=== PATIENT | female | born 1970 | race Asian ===

== ENCOUNTER 2021-10-17 10:56 | Emergency (ER) | payer OTHER, BC ==
[~2021-10-17] VITALS: Ht 153.7 cm; Wt 56.7 kg
[2021-10-17 11:34] VITALS: BP_SYST 111
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
[2021-10-17] MEDS ORDERED: MORPHINE 4 MG INJ. 4 MG/ML VIAL IVP ONE ×2 (12:00→15:15)
[2021-10-17] MEDS ORDERED: ONDANSETRON HCL 4 MG/2 ML VIAL IVP ONE (12:00)
[2021-10-17] MEDS ORDERED: BACITRACIN 1 GM OINT TP ONE (12:00)
[2021-10-17] MEDS ORDERED: DIPHTH,PERTUSS(ACELL),TET VAC 0.5 ML VIAL (Tdap) I.M. ONE (12:00)
[2021-10-17] MEDS ORDERED: NACL 0.9% 1,000 ML IV ONE (12:00)
--- NOTE | 2021-10-17 12:02 | NUR ---
DR ROSS AT BEDSIDE FRO EXAM
[2021-10-17 12:06] LABS: BASOPHILS % (AUTO) 0.4 % (0.0-2.0); EOSINOPHILS # (AUTO) 0.1 K/uL (0.0-0.4); EOSINOPHILS % (AUTO) 0.7 % (0.0-4.0); HEMATOCRIT 43.8 % (36-48); HEMOGLOBIN 14.6 g/dL (12.0-16.0); LYMPHOCYTES # (AUTO) 1.6 K/uL (1.0-5.5); LYMPHOCYTES % (AUTO) 17.2 % (20.5-51.5); MEAN CORPUSCULAR HEMOGLOBIN 27 pg (27-31); MEAN CORPUSCULAR HGB CONC 33 % (32-36); MEAN CORPUSCULAR VOLUME 80 fL (79.0-98.0); MONOCYTES # (AUTO) 0.8 K/uL (0.0-1.0); MONOCYTES % (AUTO) 8.8 % (1.7-9.3); NEUTROPHILS # (AUTO) 6.8 K/uL (1.8-7.7); NEUTROPHILS % (AUTO) 72.9 % (40.0-70.0); PLATELET COUNT (AUTO) 330 K/uL (130-430); RED CELL DISTRIBUTION WIDTH 15.2 % (9.0-15.0); WHITE BLOOD COUNT (AUTO) 9.4 K/uL (4.8-10.8)
--- NOTE | 2021-10-17 12:12 | NUR ---
PLACED IN BED 6, DR. ROSS MADE AWARE.
[2021-10-17 12:20] LABS: ANION GAP 5 (5-15); CALCIUM 8.9 mg/dL (8.4-11.0); CHLORIDE 102 mmol/L (98-107); CREATININE 0.65 mg/dL (0.55-1.30); GLUCOSE 125 mg/dL (70-99); POTASSIUM 3.6 mmol/L (3.5-5.1); SODIUM SERUM 140 mmol/L (136-145); UREA NITROGEN, BLOOD 13 mg/dL (8-21)
[2021-10-17] MEDS ORDERED: LIDOCAINE PATCH 5% 1 EA TP STA (12:22)
[2021-10-17 12:29] LABS: ALANINE AMINOTRANSFERASE 15 U/L (12-78); ALBUMIN 3.9 g/dL (3.4-4.8); ASPARTATE AMINOTRANSFERASE 21 U/L (10-37); TOTAL BILIRUBIN 0.7 mg/dL (0.0-1.0)
[2021-10-17 12:30] LABS: GFR AFRICAN AMERICAN 125 mL/min (>90)
[2021-10-17] MEDS ORDERED: ONDANSETRON 4 MG ODT TAB PO ONE (12:30)
[2021-10-17] MEDS ORDERED: ACETAMINOPHEN 500 MG TABLET PO ONE (12:30)
[2021-10-17] MEDS ORDERED: MORPHINE 4 MG INJ. 4 MG/ML VIAL IM ONE (12:30)
--- NOTE | 2021-10-17 12:54 | NUR ---
PT BCK FROM CT SCAN VIA W/C
[2021-10-17] MEDS ORDERED: iohexoL 300 mgI/mL, 150 ML INFUS..BTL IV ONE (14:36)
[2021-10-17 14:55] LABS: AMYLASE 35 U/L (0-100); LIPASE 85 U/L (73-393)
--- NOTE | 2021-10-17 15:39 | NUR ---
RESUME CARE FOR KRIS RICHTER. INFORMED BY [facility] AT 139. DR. GARIBAY MADE AWARE. NO ORDERS RECEIVED.
[2021-10-17] MEDS ORDERED: IBUP-1969 PO (17:34)
[2021-10-17] MEDS ORDERED: HYDR-3917 PO (17:34)
--- NOTE | 2021-10-17 18:23 | NUR ---
ECHO CARDIOGRAM DONE AND CLEARED FOR DC BY DR. GARIBAY. PT FEELING BETTER AFTER 1L NS GIVEN AND MORPHINE. RX SENT TO PT'S PHARM. CONDITION STABLE FOR DC. VSS, AFEBRILE. NAD NOTED. VERBALIZED UNDERSTANDING OF DC INSTRUCTIONS. PT LEFT HOSPITAL WITH .
[2021-10-17 18:30] VITALS: BP_SYST 107
== END 2021-10-17 18:30 | disposition home or self-care (01) ==
LOC: SED 10:56
DX: S29.001A Unspecified injury of muscle and tendon of front wall of thorax, initial encounter (principal); S09.90XA Unspecified injury of head, initial encounter; S40.212A Abrasion of left shoulder, initial encounter; S50.812A Abrasion of left forearm, initial encounter; S80.212A Abrasion, left knee, initial encounter; S80.211A Abrasion, right knee, initial encounter; R74.8 Abnormal levels of other serum enzymes; I10 Essential (primary) hypertension; Z79.899 Other long term (current) drug therapy; V29.9XXA Motorcycle rider (driver) (passenger) injured in unspecified traffic accident, initial encounter; Y93.89 Activity, other specified; Y92.89 Other specified places as the place of occurrence of the external cause; Y99.8 Other external cause status
CPT/HCPCS: 99285; 93306; 70450; 96374; 71045; 80053; 82150; 82550; 83880; 83690; 85025; 85379; 84484; 36415; 93005; 72170; 73560; 71260; 72125; 74177; 90715; 81025; 96372; 90471; 71250; 76376; Q0162; Q9967; J2405; J2270